=== PATIENT | female | born 1955 | race Caucasian/White ===

== ENCOUNTER 2020-07-19 14:54 | Emergency (ER) | payer MEDICARE, OTHER ==
[~2020-07-19] VITALS: Ht 172 cm; Wt 96.8 kg
[2020-07-19 15:19] LABS: BILIRUBIN,URINE NEGATIVE (NEGATIVE); CLARITY,URINE CLEAR; COLOR,URINE ORANGE; GLUCOSE, URINE (UA) NEGATIVE (NEGATIVE); KETONES,URINE NEGATIVE (NEGATIVE); LEUKOCYTE ESTERASE ,URINE NEGATIVE (NEGATIVE); NITRITE,URINE NEGATIVE (NEGATIVE); PH,URINE 5.5 (5-9); PROTEIN,URINE NEGATIVE (NEGATIVE)
[2020-07-19 15:27] LABS: BACTERIA,URINE NEGATIVE /HPF
--- NOTE | 2020-07-19 15:35 | ED Back Pain ---
General Chief Complaint: Back Problems Stated Complaint: BACK PAIN Source of Information: Patient Exam Limitations: No Limitations History of Present Illness Date Seen by Provider: Jul 19, 2020 Time Seen by Provider: 15:29 Initial Comments This is a well-appearing 64-year-old female who ambulated independently to exam room 8. States she's been having a 4 week history of right-sided mid-low back pain. States pain has worsened over the past 10 days and is worse with movement, bending and twisting. Denies any trauma. . She has tried Biofreeze, ice, heat, ibuprofen, Tylenol and Flexeril, and none of these improve the pain. She reports having a history of degenerative disc disease, but has been unable to follow-up with this due to COVID restrictions. Denies any changes in bowel, bladder, numbness, or tingling in lower ext. denies fevers, chills, cough, shortness of breath, chest pain, nausea, vomiting, abdominal pain, dysuria or hematuria. Timing/Duration: Other (4 weeks) Severity: Moderate Pain/Injury Location: Back Radiation: Other (Occ. sharp pain radiates down right side into her groin. ) Method of Injury: Unknown Modifying Factors: Worse With Jarring, Worse With Movement Associated Symptoms: denies symptoms Allergies and Home Medications Allergies Coded Allergies: codeine (Unverified Allergy, Unknown, 07/19/20) diphenhydramine (Unverified Allergy, Unknown, 07/19/20) hydrochlorothiazide (Unverified Allergy, Unknown, 07/19/20) hydrocodone (Unverified Allergy, Unknown, 07/19/20) morphine (Unverified Allergy, Unknown, 07/19/20) tramadol (Unverified Allergy, Unknown, 07/19/20) Patient Home Medication List Home Medication List Reviewed: Yes Review of Systems Constitutional: no symptoms reported EENTM: no symptoms reported Respiratory: no symptoms reported Cardiovascular: no symptoms reported Gastrointestinal: no symptoms reported Genitourinary: No dysuria; frequency; No hematuria Musculoskeletal: see HPI Skin: no symptoms reported Psychiatric/Neurological: No Symptoms Reported Past Qkhlgvq-Lbkhav-Kepugl Hx Patient Social History Alcohol Use: Occasionally Uses Recreational Drug Use: No Recent Foreign Travel: No Contact w/Someone Who Travel: No Physical Abuse: No Sexual Abuse: No Mistreated: No Fear: No Physical Exam Vital Signs Vital Signs - First Documented 07/19/20 15:05 Temp 36.7 Pulse 106 Resp 20 B/P (MAP) 138/84 (102) Pulse Ox 97 O2 Delivery Room Air Capillary Refill : Height, Weight, BMI Height: '" Weight: lbs. oz. kg; BMI Method: General Appearance: No Apparent Distress, WD/WN HEENT: PERRL/EOMI, Normal ENT Inspection, Pharynx Normal Neck: Full Range of Motion, Non Tender Cardiovascular: Regular Rate, Rhythm, No Gallop, No JVD, No Murmur, Normal Peripheral Pulses Respiratory: Chest Non Tender, Lungs Clear, Normal Breath Sounds, No Accessory Muscle Use, No Respiratory Distress Peripheral Pulses: 2+ Dorsalis Pedis (R), 2+ Left Dors-Pedis (L), 2+ Radial Pulses (R), 2+ Radial Pulses (L) Gastrointestinal: Non Tender, Soft, Hepatomegaly Back: Normal Inspection, No Vertebral Tenderness, Other (tenderness over the posterior and lateral intercostal margin at ribs 10-12, mild posterior/lateral swelling, no bruising. ) Extremity: Normal Capillary Refill, Normal Inspection, Normal Range of Motion Neurologic/Psychiatric: Alert, Oriented x3, No Motor/Sensory Deficits, Normal Mood/Affect Skin: Normal Color, Warm/Dry Progress/Results/Core Measures Results/Orders Lab Results Laboratory Tests Test 07/19/20 15:09 07/19/20 16:00 Range/Units Urine Color ORANGE Urine Clarity CLEAR Urine pH 5.5 5-9 Urine Specific [place] <=1.005 1.016-1.022 Urine Protein NEGATIVE NEGATIVE Urine Glucose (UA) NEGATIVE NEGATIVE Urine Ketones NEGATIVE NEGATIVE Urine Nitrite NEGATIVE NEGATIVE Urine Bilirubin NEGATIVE NEGATIVE Urine Urobilinogen 0.2 < = 1.0 MG/DL Urine Leukocyte Esterase NEGATIVE NEGATIVE Urine RBC (Auto) NEGATIVE NEGATIVE Urine RBC NONE /HPF Urine WBC NONE /HPF Urine Squamous Epithelial Cells 5-10 /HPF Urine Renal Epithelial Cells 2-5 /HPF Urine Crystals NONE /LPF Urine Bacteria NEGATIVE /HPF Urine Casts NONE /LPF Urine Mucus NEGATIVE /LPF Urine Culture Indicated NO White Blood Count 8.2 4.3-11.0 10^3/uL Red Blood Count 4.82 4.35-5.85 10^6/uL Hemoglobin 15.5 11.5-16.0 G/DL Hematocrit 45 35-52 % Mean Corpuscular Volume 94 80-99 FL Mean Corpuscular Hemoglobin 32 25-34 PG Mean Corpuscular Hemoglobin Concent 34 32-36 G/DL Red Cell Distribution Width 15.2 H 10.0-14.5 % Platelet Count 216 130-400 10^3/uL Mean Platelet Volume 10.6 H 7.4-10.4 FL Neutrophils (%) (Auto) 64 42-75 % Lymphocytes (%) (Auto) 28 12-44 % Monocytes (%) (Auto) 6 0-12 % Eosinophils (%) (Auto) 2 0-10 % Basophils (%) (Auto) 0 0-10 % Neutrophils # (Auto) 5.2 1.8-7.8 X 10^3 Lymphocytes # (Auto) 2.3 1.0-4.0 X 10^3 Monocytes # (Auto) 0.5 0.0-1.0 X 10^3 Eosinophils # (Auto) 0.2 0.0-0.3 10^3/uL Basophils # (Auto) 0.0 0.0-0.1 10^3/uL Sodium Level 141 135-145 MMOL/L Potassium Level 3.8 3.6-5.0 MMOL/L Chloride Level 105 98-107 MMOL/L Carbon Dioxide Level 23 21-32 MMOL/L Anion Gap 13 5-14 MMOL/L Blood Urea Nitrogen 13 7-18 MG/DL Creatinine 1.04 0.60-1.30 MG/DL Estimat Glomerular Filtration Rate 53 BUN/Creatinine Ratio 13 Glucose Level 143 H 70-105 MG/DL Calcium Level 9.1 8.5-10.1 MG/DL Corrected Calcium 9.0 8.5-10.1 MG/DL Total Bilirubin 0.6 0.1-1.0 MG/DL Aspartate Amino Transf (AST/SGOT) 35 H 5-34 U/L Alanine Aminotransferase (ALT/SGPT) 63 H 0-55 U/L Alkaline Phosphatase 92 40-136 U/L Total Protein 7.5 6.4-8.2 GM/DL Albumin 4.1 3.2-4.5 GM/DL My Orders Orders - LESTER [employer]UL [employer] Ua Culture If Indicated (07/19/20 15:05) Cbc With Automated Diff (07/19/20 15:46) Comprehensive Metabolic Panel (07/19/20 15:46) Ribs/Unilateral With Chest (07/19/20 15:46) Ketorolac Injection (Toradol Injection) (07/19/20 17:30) Orphenadrine Inj (Ed Only) (Norflex Inje (07/19/20 17:30) Medications Given in ED Current Medications Medications Dose Ordered Sig/Fabiola Route Start Time Stop Time Status Last Admin Dose Admin Ketorolac Tromethamine 30 mg ONCE ONCE IM 07/19/20 17:30 07/19/20 17:31 DC 07/19/20 17:26 30 MG Orphenadrine Citrate 60 mg ONCE ONCE IM 07/19/20 17:30 07/19/20 17:31 DC 07/19/20 17:26 60 MG Vital Signs/I&O 07/19/20 07/19/20 15:05 17:44 Temp 36.7 Pulse 106 90 Resp 20 20 B/P (MAP) 138/84 (102) 120/92 Pulse Ox 97 97 O2 Delivery Room Air Room Air Progress Progress Note : Progress Note She has a 4 week history of right-sided back pain, states that she has been unable to get in with her provider due to COVID restrictions and has only been able to make video calls. She is concerned she has an acute infection. Will obtain a basic labs and imaging of her right ribs. Labs reviewed, no elevation in white count appreciated. Noted to have a slight elevation in her LFTs, she states she has a "fatty liver." I recommended following up with a local primary care provider if she is to be staying in this area for an extended length of time. We discussed POC, and she is agreeable with plan. Diagnostic Imaging Diagonstic Imaging: Xray Plain Films/CT/US/NM/MRI: other (. Ribs) Comments NAME: MARY GRACE CASTREJON MED REC#: [id number] PT STATUS: REG ER : 1955 PHYSICIAN: LESTER AZUL APRN ADMIT DATE: 07/19/20/ER Signed Date of Exam:07/19/20 RIBS/UNILATERAL WITH CHEST INDICATION: Right posterior lower rib pain. TIME OF EXAM: 4:33 p.m. EXAMINATION: Multiple views of the chest and right ribs were obtained. FINDINGS: No dislodged rib fracture is seen. No parenchymal contusion, effusion or pneumothorax is seen. IMPRESSION: No acute abnormality is identified. Dictated by: Dictated on workstation # [id number] Dict: 07/19/20 165 Trans: 07/19/201699 PJE [id number] Interpreted by: YOAN AMAYA MD Electronically signed by: YOAN AMAYA MD 07/19/201699 Reviewed: Reviewed by Me Departure Impression Primary Impression: Back strain of thoracic region Additional Impression: Rib pain on right side Disposition: 01 HOME, SELF-CARE Condition: Stable/Unchanged Departure-Patient Inst. Decision time for Depature: 17:00 Patient Instructions: Muscle Strain (DC) Add. Discharge Instructions: Plan: 1. Discharge home. 2. May take Tylenol or Ibuprofen as needed for pain per package instructions. 3. Follow up with your primary care provider if your symptoms persist. 4. Use ice and heat to affected area 20 minutes at a time 4-6 times per day. 5. Return for any new or concerning symptoms. All discharge instructions reviewed with patient and/or family. Voiced understanding. LESTER [employer] Jul 19, 2020 15:35
[2020-07-19 16:22] LABS: BASOPHILS % (AUTO) 0 % (0-10); EOSINOPHILS # (AUTO) 0.2 10^3/uL (0.0-0.3); EOSINOPHILS % (AUTO) 2 % (0-10); HEMATOCRIT 45 % (35-52); HEMOGLOBIN 15.5 G/DL (11.5-16.0); LYMPHOCYTES # (AUTO) 2.3 X 10^3 (1.0-4.0); LYMPHOCYTES % (AUTO) 28 % (12-44); MEAN CORPUSCULAR HEMOGLOBIN 32 PG (25-34); MEAN CORPUSCULAR HGB CONC 34 G/DL (32-36); MEAN CORPUSCULAR VOLUME 94 FL (80-99); MEAN PLATELET VOLUME 10.6 FL (7.4-10.4); MONOCYTES # (AUTO) 0.5 X 10^3 (0.0-1.0); MONOCYTES % (AUTO) 6 % (0-12); NEUTROPHILS # (AUTO) 5.2 X 10^3 (1.8-7.8); NEUTROPHILS % (AUTO) 64 % (42-75); PLATELET COUNT 216 10^3/uL (130-400); WHITE BLOOD COUNT 8.2 10^3/uL (4.3-11.0)
[2020-07-19 16:30] LABS: ALBUMIN 4.1 GM/DL (3.2-4.5); POTASSIUM 3.8 MMOL/L (3.6-5.0)
[2020-07-19 16:31] LABS: CALCIUM 9.1 MG/DL (8.5-10.1)
[2020-07-19 16:32] LABS: TOTAL PROTEIN 7.5 GM/DL (6.4-8.2)
[2020-07-19 16:34] LABS: BILIRUBIN,TOTAL 0.6 MG/DL (0.1-1.0)
[2020-07-19 16:36] LABS: CREATININE SERUM 1.04 MG/DL (0.60-1.30)
--- NOTE | 2020-07-19 16:58 | Diagnostic Imaging Report ---
INDICATION: Right posterior lower rib pain. TIME OF EXAM: 4:33 p.m. EXAMINATION: Multiple views of the chest and right ribs were obtained. FINDINGS: No dislodged rib fracture is seen. No parenchymal contusion, effusion or pneumothorax is seen. IMPRESSION: No acute abnormality is identified. Dictated by: Dictated on workstation # [id number]
--- NOTE | 2020-07-19 17:04 | NUR ---
PT RESTING QUIETLY, WATCHING HER PHONE, NO C/O OR CONCERNS VOICED. UPDATED ON WAIT. UNDERSTANDING VOICED.
[2020-07-19] MEDS ORDERED: ORPHENADRINE 60 MG/2 ML (NORFLEX) AMP (ED ONLY) IM ONE (17:30)
[2020-07-19] MEDS ORDERED: KETOROLAC 30 MG/ML VIAL IM ONE (17:30)
[2020-07-19 17:44] VITALS: BP 120/92
--- NOTE | 2020-07-19 17:44 | NUR ---
PT DISCHARGED TO HOME W/ INSTR. UNDERSTANDING VOICED, NO QUESTIONS.
== END 2020-07-19 17:44 | disposition home or self-care (01) ==
LOC: ER 14:57
DX: S29.012A Strain of muscle and tendon of back wall of thorax, initial encounter (principal); R07.81 Pleurodynia; Z88.5 Allergy status to narcotic agent; Z88.6 Allergy status to analgesic agent; Z88.8 Allergy status to other drugs, medicaments and biological substances; X58.XXXA Exposure to other specified factors, initial encounter
CPT/HCPCS: 36415; 71101; 80053; 81000; 85025

== ENCOUNTER → 2021-01-08 | Outpatient (CLI) | payer MEDICARE | LOC: CARD 12:50 | PROVIDERS: ATTEND Internal Medicine Cardiovascular Disease | DX: R07.9 Chest pain, unspecified (principal); I10 Essential (primary) hypertension | CPT/HCPCS: 93306 ==

== ENCOUNTER → 2021-02-01 | Outpatient (CLI) | payer MEDICARE ==
[~2021-02-01] VITALS: Ht 172 cm; Wt 95.0 kg
[~2021-02-01] MED LIST: CATHETER FLUSH 10 ML SYR IV PRN; REGADENOSON 0.4 MG/5 ML SYR (LEXISCAN) IV ONE
[2021-02-01 09:06] VITALS: BP 135/92
--- NOTE | 2021-02-01 18:21 | Cardiology Stress Test Report ---
Stress Test Report Date of Procedure/Referring: Date of Procedure: Feb 01, 2021 PCP Bessy Coleman MD Admitting Physician Gela Salas DO Indications: Hypertension Baseline Heart Rate: 80 Baseline Blood Pressure: Blood Pressure Systolic: 135 Blood Pressure Diastolic: 92 Baseline Vitals Vital Signs Date Time Temp Pulse Resp B/P (MAP) Pulse Ox O2 Delivery O2 Flow Rate FiO2 02/01/21 09:06 81 18 135/92 (106) 97 Room Air Baseline EKG: Baseline EKG: Normal sinus rhythm Summary After explaining the procedure to the patient, she signed a consent and then brought to the stress nuclear laboratory. Patient received 0.4 mg Lexiscan for stress test, ECG, heart rate and blood pressure were monitored continuously. Resting and stress dose of radio tracer were injected, imaging was acquired and reviewed in short axis, horizontal long axis and vertical long axis views. TID: 0.96 SSS: 4 SDS: 4 EF: 75 1. Patient tolerated Lexiscan well 2. Mild decrease uptake involving the mid to apical anterolateral wall with mild reversibility, no significant ischemia or infarction on SPECT images 3. Normal left ventricular size, EF 75% BESSY COLEMAN MD Feb 01, 2021 18:21
== END ==
LOC: CARD 08:00
PROVIDERS: ATTEND Internal Medicine Cardiovascular Disease
DX: I10 Essential (primary) hypertension (principal); R07.9 Chest pain, unspecified
CPT/HCPCS: 78452; 93017; A9502

== ENCOUNTER → 2021-02-26 | Outpatient (CLI) | payer MEDICARE ==
[~2021-02-26] MED LIST changes: +HOLD METFORMIN - RECEIVED CONTRAST 20 ML VIAL IV SCH; +IOHEXOL 350 MG/ML 100 ML (OMNIPAQUE 350) VIAL IV ONE; +NS 100 ML (IVPB) BAG IV ONE; -REGADENOSON 0.4 MG/5 ML SYR (LEXISCAN) IV ONE
[2021-02-26 08:47] LABS: CREATININE SERUM 1.07 MG/DL (0.60-1.30)
--- NOTE | 2021-02-26 10:00 | Diagnostic Imaging Report ---
PROCEDURE: CT abdomen and pelvis with and without contrast. TECHNIQUE: Precontrast acquisitions were acquired through the abdomen and pelvis. Multiple contiguous axial images were obtained through the abdomen and pelvis after the administration of intravenous contrast. Auto Exposure Controls were utilized during the CT exam to meet ALARA standards for radiation dose reduction. INDICATION: Abdominal pain. History of abdominal aortic aneurysm repair. COMPARISON: None FINDINGS: Included portions of the lung bases show the area of nodular thickening associated with the anterolateral margins of the minor fissure on the right. Area in question measures 2 x 0.9 cm. Punctate 4 mm micronodule is also seen within the posterior margins of the lateral segment of the right middle lobe (image 5, series 5).. CT ABDOMEN: Moderate air and stool is seen scattered throughout the colon. A normal appendix cannot be adequately identified, but there is no pericecal inflammation. Small bowel loops are nondistended. Liver is diffusely hypodense consistent with hepatic steatosis. There is no focal lesion. Portal vein shows normal enhancement. Several small subcentimeter renal parenchymal rounded hypoenhancing foci are noted. These are too small to adequately characterize. Otherwise, the kidneys, adrenal glands, spleen, and pancreas have a normal CT appearance. Bilateral common iliac stents are noted. There is moderate diffuse calcified aortic and arterial atherosclerosis. No loculated fluid collection, free fluid or free air is seen within the abdomen. No abnormal mesenteric or retroperitoneal adenopathy is identified. Osseous structures showed no acute abnormalities. CT PELVIS: Urinary bladder is grossly unremarkable. There is no loculated fluid collection, free fluid, nor free air within the pelvis. No abnormal lymph nodes are identified. Osseous structures show no acute abnormalities. IMPRESSION: 1. No acute abnormalities are seen within the abdomen or pelvis. 2. Hepatic steatosis. 3. Moderate colonic air and stool. 4. Areas of micro-nodularity and nodular thickening of the minor fissure. A 3 month follow-up dedicated CT chest is recommended. Dictated by: Dictated on workstation # [id number]
== END ==
LOC: RAD 08:45
PROVIDERS: ATTEND Surgery
DX: K76.0 Fatty (change of) liver, not elsewhere classified (principal)
CPT/HCPCS: 36415; 74178; 82565; 84520

== ENCOUNTER 2021-04-13 09:12 | Outpatient (CLI) | payer MEDICARE ==
[~2021-04-13] VITALS: Ht 172.7 cm; Wt 97.4 kg
[2021-04-13] MEDS ORDERED: FURO40TA4 PO (10:07)
[2021-04-13] MEDS ORDERED: POTA20TA15 PO (10:07)
[2021-04-13] MEDS ORDERED: CARV3.122 PO (10:07)
[2021-04-13] MEDS ORDERED: MV-M1TAB57 PO (10:07)
[2021-04-13] MEDS ORDERED: ASPI-999 PO (10:07)
[2021-04-13] MEDS ORDERED: VITA400T9 PO (10:07)
[2021-04-13] MEDS ORDERED: CHOL200025 PO (10:07)
[2021-04-13] MEDS ORDERED: CYCL10TA9 PO (10:07)
[2021-04-13] MEDS ORDERED: MAGN400T39 PO (10:07)
[2021-04-13] MEDS ORDERED: MONT10TA32 PO (10:07)
[2021-04-13] MEDS ORDERED: SIMV40TA25 PO (10:07)
[2021-04-13] MEDS ORDERED: CLON1TAB13 PO (10:07)
[2021-04-13] MEDS ORDERED: OMEP20CA18 PO (10:07)
[2021-04-14] MEDS ORDERED: PANT40TA2 PO (11:42)
== END 2021-04-13 10:10 | disposition home or self-care (01) ==
LOC: PREOP 09:12
PROVIDERS: ATTEND Surgery
DX: Z01.818 Encounter for other preprocedural examination (principal)

== ENCOUNTER → 2021-04-13 | Outpatient (CLI) | payer MEDICARE ==
[~2021-04-13] MED LIST changes: +ASPI-999 PO; +CARV3.122 PO; -CATHETER FLUSH 10 ML SYR IV PRN; +CHOL200025 PO; +CLON1TAB13 PO; +CYCL10TA9 PO; +FURO40TA4 PO; -HOLD METFORMIN - RECEIVED CONTRAST 20 ML VIAL IV SCH; -IOHEXOL 350 MG/ML 100 ML (OMNIPAQUE 350) VIAL IV ONE; +MAGN400T39 PO; +MONT10TA32 PO; +MV-M1TAB57 PO; -NS 100 ML (IVPB) BAG IV ONE; +OMEP20CA18 PO; +PANT40TA2 PO; +POTA20TA15 PO; +SIMV40TA25 PO; +VITA400T9 PO
== END ==
LOC: LABNPT 08:12
PROVIDERS: ATTEND Surgery
DX: Z53.9 Procedure and treatment not carried out, unspecified reason (principal)
CPT/HCPCS: 87635

== ENCOUNTER 2021-04-14 11:21 | Day surgery (SDC) | payer MEDICARE ==
[~2021-04-14] VITALS: Ht 172.7 cm; Wt 97.4 kg
[~2021-04-14 11:21] MED LIST changes: +LACTATED RINGERS 1,000 ML IV ONE; -PANT40TA2 PO
[2021-04-14] MEDS ORDERED: LACTATED RINGERS 1,000 ML IV STA (11:27)
[2021-04-14] MEDS ORDERED: HURRICAINE EXT TUBE (BENZOCAINE) XX PRN (11:30)
[2021-04-14] MEDS ORDERED: LIDOCAINE JELLY 2% 6 ML SYRINGE MM PRN (11:30)
--- NOTE | 2021-04-14 11:40 | Progress Note-Pre Operative ---
Pre-Operative Progress Note H&P Reviewed The H&P was reviewed, patient examined and no changes noted. Date Seen by Provider: Apr 14, 2021 Time Seen by Provider: 11:30 Date H&P Reviewed: Apr 14, 2021 Time H&P Reviewed: 11:30 Pre-Operative Diagnosis: GERD, dysphagia, screening o ZONIA PHELPS MD Apr 14, 2021 11:40
[2021-04-14] MEDS ORDERED: PANT40TA2 PO (11:42)
--- NOTE | 2021-04-14 11:42 | Discharge Inst-Surgical ---
D/C Lap Instructions-KIDO New, Converted, or Re-Newed RX: RX on Chart Follow Up Appt in 2 weeks Activity as tolerated High Fiber Diet 25g or more per day Avoid Alcohol, Caffeine, Spicy [place] and Acid foods. Drink 64 fluid oz or more of fluids per day. Symptoms to Report: Fever over 101 degree F, Nausea/Vomiting If any problems/questions: Contact your physician or go to Emergency Room ZONIA PHELPS MD Apr 14, 2021 11:42
[2021-04-14] MEDS ORDERED: fentaNYL INJ 100 MCG/2 ML AMP IVP PRN (11:45)
[2021-04-14] MEDS ORDERED: ACETAMINOPHEN 325 MG TABLET PO PRN (11:45)
[2021-04-14] MEDS ORDERED: ONDANSETRON 4 MG/2 ML (SDV) Z0FRAN IVP PRN (11:45)
[2021-04-14 11:51] VITALS: BP 135/81
[2021-04-14] MEDS ORDERED: PROPOFOL INJECTION 50 ML IV ONE (11:59)
[2021-04-14] MEDS ORDERED: MIDAZOLAM 2 MG/2 ML (VERSED) VIAL ONE (12:00)
[2021-04-14] MEDS ORDERED: HURRICAINE EXT TUBE (BENZOCAINE) ONE (13:46)
[2021-04-14] MEDS ORDERED: LIDOCAINE JELLY 2% 6 ML SYRINGE ONE (13:46)
[2021-04-14] MEDS ORDERED: ONDANSETRON 4 MG/2 ML (SDV) Z0FRAN ONE (13:52)
[2021-04-14 14:47] VITALS: BP 98/54
--- NOTE | 2021-04-14 14:49 | Anesthesia-General Post-Op ---
MAC Patient Condition Mental Status/LOC: Same as Preop Cardiovascular: Satisfactory Nausea/Vomiting: Absent Respiratory: Satisfactory Pain: Controlled Complications: Absent Post Op Complications Complications None Follow Up Care/Instructions Patient Instructions None needed. Anesthesiology Discharge Order Discharge Order Patient is doing well, no complaints, stable vital signs, no apparent adverse anesthesia problems. No complications reported per nursing. NINA KESSLER CRNA Apr 14, 2021 14:49
[2021-04-14 14:52] VITALS: BP 107/63
--- NOTE | 2021-04-14 14:57 | Progress Note-Post Operative ---
Post-Operative Progess Note Surgeon (s)/Adult Services Librarian (s) Surgeon ZONIA PHELPS MD Adult Services Librarian: none Pre-Operative Diagnosis GERD, dysphagia, screening colo Post-Operative Diagnosis reflux esophagitis(stage 2), mild dist esoph stricture, intact HH and wrap, moderate gastritis. chronic stage 2 ext and int hemorrhoids. Procedure & Operative Findings Date of Procedure 04/14/21 Procedure Performed/Findings EGD with bx and balloon dilatation. colonoscopy Anesthesia Type mac Estimated Blood Loss Estimated blood loss (mL): minimal Specimens/Packing Specimens Removed ge jxn, antrum ZONIA PHELPS MD Apr 14, 2021 14:57
[2021-04-14 15:05] VITALS: BP 107/63
[2021-04-14 15:27] VITALS: BP 110/69
--- NOTE | 2021-04-14 20:01 | OPERATIVE REPORT ---
DATE OF SERVICE: 04/14/2021 ATTENDING PRIMARY CARE PHYSICIAN: Dr. Gela Salas. PREOPERATIVE DIAGNOSES: Dysphagia, gastroesophageal reflux disease, and crampy abdominal pain. POSTOPERATIVE DIAGNOSES: Reflux esophagitis stage II with a mild distal esophageal stricture, intact previous hiatal hernia repair in wrap, moderate gastritis, no distal obstructions. Chronic stage II external and internal hemorrhoids. PROCEDURES PERFORMED: EGD with biopsy and balloon dilatation, colonoscopy. SURGEON: Zonia Lawton MD. ANESTHESIA: Monitored anesthesia care. ESTIMATED BLOOD LOSS: Minimal. FINDINGS: Reflux esophagitis stage II with a mild distal esophageal stricture, intact previous hiatal hernia repair in wrap, moderate gastritis, no distal obstructions. Chronic stage II external and internal hemorrhoids. DISPOSITION: The patient tolerated the procedure well. INDICATIONS FOR PROCEDURE: The patient is a 65-year-old female, who was referred over to us with a history of crampy abdominal pain, which has been going on for several years. She also does have a longstanding history of constipation and this sounds to be more consistent with a constipation, predominant irritable bowel syndrome. She also has had pain in the epigastric region and was seen by cardiology and the workup was unremarkable. She has also had issues with gastroesophageal reflux disease for many years and underwent a hiatal hernia repair as well as some form of antireflux procedure in 2002. She states that she has developed issues with dysphagia and when she takes in a food bolus, she feels that substernally this will either come up or reduced on its own over time. DESCRIPTION OF PROCEDURE: The patient was brought to the endoscopy suite and laid in the left lateral decubitus position. After adequate IV pain and sedative medications and monitored anesthesia care, the mouthpiece was applied. The endoscope was placed in the mouth, visualizing the pharynx and hypopharyngeal region. Vocal cords, epiglottis and vallecula identified and appeared to be normal. The endoscope was then gently intubated the esophageal opening and esophagus insufflated. The endoscope was then advanced to the first, second and third portion of the esophagus. At the level of the GE junction, a reflux esophagitis stage II was identified. A mild distal esophageal stricture was also identified. A biopsy was taken with the forceps with visualization of good hemostasis. The endoscope was then advanced in the stomach and endoscope retroflexed visualizing an intact previous hiatal hernia repair as well as an antireflux procedure. No recurrence of hiatal hernia. There was a moderate severity gastritis throughout the stomach. No formal ulcerations, polyps or any neoplasms and a biopsy was taken of the antrum to rule out H. pylori with visualization of good hemostasis. The endoscope was then advanced to the pylorus and the first and second portion of the duodenum, which appeared normal with no distal obstructions. We then proceeded with balloon dilatation of the lower esophageal region and the balloon was placed in the stomach and pulled back to the area of the stricture. We then proceeded to 2, 4, and then 6 atmospheres of pressure with moderate resistance or 20 mm in luminal diameter and left this in place for 60 seconds. The balloon was then desufflated and removed with visualization of good hemostasis as well as no mucosal tears. The endoscope was then slowly withdrawn while taking a second look and suctioning of residual air with no additional findings. A digital rectal examination was performed, which revealed chronic stage II external and internal hemorrhoids, not actively edematous nor inflamed and no bleeding. Normal sphincter tone was felt and there were no palpable masses. The endoscope was then intubated to the anus and rectum gently insufflated. The endoscope was then advanced through the valves of [place] of the rectum with no polyps or any neoplasms identified. We then proceeded through the sigmoid colon, where no diverticulosis identified. The endoscope was then advanced to the remainder of the descending, transverse and ascending colon to the cecum. These segments were normal. There were no polyps or any neoplasms identified throughout the colon or rectum. The endoscope was then slowly withdrawn while taking a second look and suctioning of residual air with no additional findings. The patient tolerated the procedure well. For her reflux and dysphagia, we will recommend the necessary lifestyle and diet accommodation, which encompass a small and more frequent meals, avoiding to eating at night as well as head elevation while lying supine. She also does have risk factors for reflux including smoking, which she needs to proceed with cessation. We also feel that she has constipation predominant irritable bowel syndrome and we will recommend incorporation of high fiber diet including a fiber supplement, which equal or exceeds 30 grams daily as well as significant amounts of water to promote soft stools on a daily basis. From a colonoscopy standpoint, this was normal and if she is asymptomatic, she does not need another colonoscopy for another 10 years. We will also place her omeprazole 20 mg daily and Protonix 40 mg daily. Job ID: [id number] DocumentID: [id number] Dictated Date: 04/14/2021 14:52:26 [employer] Date: 04/14/2021 19:59:48 Dictated By: ZONIA LAWTON MD MTDD
== END 2021-04-14 15:35 | disposition home or self-care (01) ==
LOC: ENDO 11:21
PROVIDERS: ATTEND Surgery
DX: K21.00 Gastro-esophageal reflux disease with esophagitis, without bleeding (principal); K22.2 Esophageal obstruction; K29.70 Gastritis, unspecified, without bleeding; K64.1 Second degree hemorrhoids; I10 Essential (primary) hypertension; K59.00 Constipation, unspecified; M79.7 Fibromyalgia; G89.29 Other chronic pain; M85.80 Other specified disorders of bone density and structure, unspecified site; M19.90 Unspecified osteoarthritis, unspecified site; E78.00 Pure hypercholesterolemia, unspecified; F41.9 Anxiety disorder, unspecified; Z98.890 Other specified postprocedural states; Z87.891 Personal history of nicotine dependence; Z79.899 Other long term (current) drug therapy; Z79.82 Long term (current) use of aspirin; Z88.5 Allergy status to narcotic agent; Z90.49 Acquired absence of other specified parts of digestive tract; Z86.010 Personal history of colon polyps

== ENCOUNTER → 2021-06-07 | Outpatient (CLI) | payer MEDICARE ==
[~2021-06-07] MED LIST changes: -LACTATED RINGERS 1,000 ML IV ONE; +PANT40TA2 PO
== END ==
LOC: RAD 10:15
PROVIDERS: ATTEND Internal Medicine
DX: Z12.31 Encounter for screening mammogram for malignant neoplasm of breast (principal)
CPT/HCPCS: 77063; 77067